=== PATIENT | female | born 1950 | race Caucasian/White ===

== ENCOUNTER 2023-09-10 18:25 | Inpatient (IN) | payer MEDICARE ==
[~2023-09-10 18:25] MED LIST: Iopamidol-370 76% 500 ML MDV (1 ML CHARGE) ONE
[2023-09-10 19:21] LABS: #Monocytes 0.7 thou/uL (0.11-0.59); #Neutrophils 7.1 thou/uL (1.40-6.50); %Basophils 0.3 % (0.0-1.0); %Eosinophils 0.3 % (0.0-10.0); %Lymphocytes 24.1 % (21.0-51.0); %Monocytes 6.8 % (0.0-10.0); %Neutrophils 68.1 % (42.0-75.0); Hematocrit 20.6 % (36.0-47.0); Hemoglobin 6.2 g/dL (12.0-16.0); Mean Corpuscular HGB CONC 30.1 g/dL (32.0-36.0); Mean Corpuscular Hemoglobin 20.5 pg (27.0-31.0); Mean Platelet Volume 11.7 fL (7.4-10.4); Platelet Count 182 10x3/uL (130-400); RBC Distribution Width 17.8 % (11.5-14.5); Red Blood Cell (RBC) Count 3.03 mill/uL (4.20-5.40); White Blood Cell (WBC) Count 10.3 10x3/uL (4.8-10.8)
[2023-09-10] MEDS ORDERED: Acetaminophen 500 MG TAB ONE (19:25)
[2023-09-10] MEDS ORDERED: Morphine 4 MG/ML VIAL ONE ×2 (19:26→21:21)
[2023-09-10 19:53] LABS: Troponin I 0.012 ng/mL (< 0.028)
[2023-09-10 19:57] LABS: ALT (SGPT) Less than 7 U/L (8-55); AST (SGOT) 17 U/L (5-34); Albumin 3.4 g/dL (3.4-4.8); Alkaline Phosphatase 79 U/L (40-110); Anion Gap 14 mmol/L (10-20); BUN (Urea Nitrogen) 26 mg/dL (9.8-20.1); Bilirubin, Total 0.5 mg/dL (0.2-1.2); Calc. Creatinine Clearance 0 mL/min (70-130); Calcium 8.6 mg/dL (7.8-10.44); Carbon Dioxide 25 mmol/L (23-31); Chloride 105 mmol/L (98-107); Estimated GFR 75; Globulin 2.5 g/dL (2.4-3.5); Glucose 115 mg/dL (83-110); Lipase 7 U/L (8-78); Potassium 3.4 mmol/L (3.5-5.1); Protein, Total 5.9 g/dL (5.8-8.1); Sodium 141 mmol/L (136-145)
[2023-09-10 19:59] LABS: Anisocytosis SLIGHT = 6-15 cells HPF (0-5); CellaVision Operator ID lab.sh2; Hypochromia SLIGHT = 6-15 cells HPF (0-5); Microcytosis SLIGHT = 6-15 cells HPF (0-5); Ovalocytes SLIGHT = 2-5 cells HPF (0-1); Platelet Adequacy Comment Platelets Normal; Polychromasia SLIGHT = 2-3 cells HPF (0-2); Target Cells SLIGHT = 2-5 cells HPF (0-1)
[2023-09-10] MEDS ORDERED: Ipratropium/Albuterol 3 ML NEB ONE (23:11)
[2023-09-11] MEDS ORDERED: Ondansetron PF 4 MG/2 ML Vial IVP PRN (00:06)
[2023-09-11] MEDS ORDERED: Acetaminophen 325 MG TAB PO PRN (00:06)
[2023-09-11] MEDS ORDERED: Ipratropium/Albuterol 3 ML NEB EZPAP PRN (00:12)
[2023-09-11] MEDS ORDERED: Potassium Chloride 20 MEQ TAB PO SCH (00:15)
[2023-09-11] MEDS ORDERED: traMADol HCl 50 MG TAB PO PRN (00:24)
[2023-09-11 00:49] LABS: Iron 12 ug/dL (50-170); Iron Binding Capacity, Total 360 mcg/dL (265-497); Iron Binding Capacity, Total 361 mcg/dL (265-497); Magnesium 1.9 mg/dL (1.6-2.6)
[2023-09-11 01:05] LABS: Hematocrit 24.3 % (36.0-47.0); Hemoglobin 7.5 g/dL (12.0-16.0)
[2023-09-11 02:06] VITALS: BMI 27.0
[2023-09-11] MEDS: Ipratropium/Albuterol 3 ML NEB NEB SCH ×6 (02:06→22:13)
[2023-09-11 02:09] LABS: Troponin I Less than 0.010 ng/mL (< 0.028)
[2023-09-11] MEDS: methylPREDNISolone Sod Succ 40 MG VIAL IVP SCH ×2 (02:34→12:33)
[2023-09-11] MEDS ORDERED: Furosemide 20 MG/2 ML VIAL SLOW IVP SCH (04:15)
[2023-09-11 05:50] LABS: #Monocytes 0.2 thou/uL (0.11-0.59); #Neutrophils 7.7 thou/uL (1.40-6.50); %Basophils 0.4 % (0.0-1.0); %Eosinophils 0.2 % (0.0-10.0); %Lymphocytes 20.4 % (21.0-51.0); %Monocytes 2.4 % (0.0-10.0); %Neutrophils 76.2 % (42.0-75.0); Hematocrit 27.6 % (36.0-47.0); Hemoglobin 8.3 g/dL (12.0-16.0); Mean Corpuscular HGB CONC 30.1 g/dL (32.0-36.0); Mean Corpuscular Hemoglobin 21.6 pg (27.0-31.0); Mean Platelet Volume 11.6 fL (7.4-10.4); Platelet Count 200 10x3/uL (130-400); RBC Distribution Width 19.2 % (11.5-14.5); Red Blood Cell (RBC) Count 3.85 mill/uL (4.20-5.40); White Blood Cell (WBC) Count 10.1 10x3/uL (4.8-10.8)
[2023-09-11 05:59] LABS: Mean Corpuscular Volume 71.7 fl (78.0-98.0)
[2023-09-11 06:18] LABS: Anion Gap 14 mmol/L (10-20); BUN (Urea Nitrogen) 29 mg/dL (9.8-20.1); Calc. Creatinine Clearance 58 mL/min (70-130); Calcium 8.7 mg/dL (7.8-10.44); Carbon Dioxide 23 mmol/L (23-31); Chloride 108 mmol/L (98-107); Estimated GFR 67; Glucose 106 mg/dL (83-110); Magnesium 1.9 mg/dL (1.6-2.6); Sodium 141 mmol/L (136-145)
[2023-09-11 06:19] LABS: Troponin I Less than 0.010 ng/mL (< 0.028)
[2023-09-11] MEDS: Ferrous Sulfate 325 MG TAB PO SCH ×2 (07:49→16:39)
[2023-09-11] MEDS ORDERED: Albuterol 200 PUFF (6.7GM INHALER) INH PRN ×2 (10:16→10:26)
[2023-09-11] MEDS ORDERED: Acetaminophen/Codeine 30-300mg Tablet PO PRN (10:16)
[2023-09-11] MEDS ORDERED: Non-Formulary Item 1 EACH (Tizanidine Hcl [Tizanidine Hcl] 4 MG Capsule) PO PRN (10:16)
[2023-09-11] MEDS ORDERED: Mometasone 200 MCG/Formoterol 5 MCG 120 PUFF INHALER INH PRN (10:29)
[2023-09-11] MEDS ORDERED: tiZANidine HCl 4 MG TAB PO PRN (10:29)
[2023-09-11] MEDS: Chlorthalidone 25 MG TAB PO SCH (10:40)
[2023-09-11] MEDS: hydrALAZINE 25 MG TAB PO SCH ×3 (10:40→20:06)
[2023-09-11] MEDS ORDERED: Lisinopril 20 MG TAB PO SCH (10:45)
[2023-09-11] MEDS: Acetaminophen/Codeine 30-300mg Tablet PO PRN ×2 (10:58→16:39)
[2023-09-11] MEDS: Lisinopril 20 MG TAB PO SCH (10:58)
[2023-09-11] MEDS: Azithromycin 500 MG in Sodium Chloride 0.9% 250 ML 250 ML IVPB SCH (20:07)
[2023-09-11] MEDS ORDERED: Non-Formulary Item 1 EACH (Benazepril Hcl [Benazepril Hcl] 40 MG Tablet) PO SCH (21:00)
[2023-09-12] MEDS: methylPREDNISolone Sod Succ 40 MG VIAL IVP SCH ×2 (00:48→12:41)
[2023-09-12] MEDS: Ipratropium/Albuterol 3 ML NEB NEB SCH ×6 (02:11→21:58)
[2023-09-12 05:53] LABS: #Monocytes 0.9 thou/uL (0.11-0.59); #Neutrophils 8.1 thou/uL (1.40-6.50); %Basophils 0.1 % (0.0-1.0); %Lymphocytes 21.5 % (21.0-51.0); %Monocytes 7.6 % (0.0-10.0); %Neutrophils 70.4 % (42.0-75.0); Hematocrit 24.2 % (36.0-47.0); Hemoglobin 7.3 g/dL (12.0-16.0); Mean Corpuscular HGB CONC 30.2 g/dL (32.0-36.0); Mean Corpuscular Hemoglobin 21.5 pg (27.0-31.0); Mean Corpuscular Volume 71.2 fl (78.0-98.0); Mean Platelet Volume 11.7 fL (7.4-10.4); Platelet Count 203 10x3/uL (130-400); RBC Distribution Width 19.7 % (11.5-14.5); White Blood Cell (WBC) Count 11.5 10x3/uL (4.8-10.8)
[2023-09-12 05:57] LABS: Anion Gap 14 mmol/L (10-20); BUN (Urea Nitrogen) 35 mg/dL (9.8-20.1); Calc. Creatinine Clearance 49 mL/min (70-130); Calcium 8.7 mg/dL (7.8-10.44); Carbon Dioxide 26 mmol/L (23-31); Chloride 107 mmol/L (98-107); Estimated GFR 56; Glucose 120 mg/dL (83-110); Potassium 3.8 mmol/L (3.5-5.1); Sodium 143 mmol/L (136-145)
[2023-09-12] MEDS ORDERED: Prasugrel 10 MG TAB PO SCH (09:00)
[2023-09-12] MEDS ORDERED: Albuterol 200 PUFF (6.7GM INHALER) INH PRN (09:49)
[2023-09-12] MEDS ORDERED: Ipratropium/Albuterol 3 ML NEB EZPAP PRN (09:50)
[2023-09-12] MEDS: Ferrous Sulfate 325 MG TAB PO SCH ×2 (09:55→17:10)
[2023-09-12] MEDS: Chlorthalidone 25 MG TAB PO SCH (09:55)
[2023-09-12] MEDS: Lisinopril 20 MG TAB PO SCH ×2 (09:55→20:59)
[2023-09-12] MEDS: hydrALAZINE 25 MG TAB PO SCH ×3 (09:55→21:00)
[2023-09-12] MEDS: Aspirin Chewable 81 MG TAB PO SCH (09:55)
[2023-09-12] MEDS ORDERED: Amlodipine 5 MG TAB PO SCH (17:15)
[2023-09-12] MEDS: Mometasone 200 MCG/Formoterol 5 MCG 120 PUFF INHALER INH SCH (19:15)
[2023-09-12] MEDS: Azithromycin 500 MG in Sodium Chloride 0.9% 250 ML 250 ML IVPB SCH (21:00)
[2023-09-13] MEDS: methylPREDNISolone Sod Succ 40 MG VIAL IVP SCH ×2 (00:29→12:07)
[2023-09-13] MEDS: Acetaminophen/Codeine 30-300mg Tablet PO PRN ×4 (00:33→20:28)
[2023-09-13] MEDS: Ipratropium/Albuterol 3 ML NEB NEB SCH ×4 (02:10→14:16)
[2023-09-13 06:21] LABS: #Monocytes 0.2 thou/uL (0.11-0.59); #Neutrophils 8.5 thou/uL (1.40-6.50); %Lymphocytes 19.6 % (21.0-51.0); %Monocytes 1.7 % (0.0-10.0); %Neutrophils 78.1 % (42.0-75.0); Hematocrit 25.4 % (36.0-47.0); Hemoglobin 7.6 g/dL (12.0-16.0); Mean Corpuscular HGB CONC 29.9 g/dL (32.0-36.0); Mean Corpuscular Hemoglobin 21.7 pg (27.0-31.0); Mean Corpuscular Volume 72.6 fl (78.0-98.0); Mean Platelet Volume 11.7 fL (7.4-10.4); Platelet Count 216 10x3/uL (130-400); RBC Distribution Width 20.6 % (11.5-14.5); White Blood Cell (WBC) Count 10.9 10x3/uL (4.8-10.8)
[2023-09-13 06:42] LABS: Anion Gap 15 mmol/L (10-20); BUN (Urea Nitrogen) 37 mg/dL (9.8-20.1); Calc. Creatinine Clearance 51 mL/min (70-130); Carbon Dioxide 26 mmol/L (23-31); Chloride 107 mmol/L (98-107); Estimated GFR 58; Glucose 125 mg/dL (83-110); Potassium 3.9 mmol/L (3.5-5.1); Sodium 144 mmol/L (136-145)
[2023-09-13] MEDS: Mometasone 200 MCG/Formoterol 5 MCG 120 PUFF INHALER INH SCH ×2 (07:59→18:43)
[2023-09-13 08:24] LABS: CellaVision Operator ID LAB.GE; Hypochromia MODERATE=16-30 cells HPF (0-5); Microcytosis SLIGHT = 6-15 cells HPF (0-5); Platelet Adequacy Comment Platelets Normal; Polychromasia MODERATE = 3-4 cells HPF (0-2)
[2023-09-13] MEDS: Lisinopril 20 MG TAB PO SCH ×2 (08:52→19:53)
[2023-09-13] MEDS: hydrALAZINE 25 MG TAB PO SCH ×3 (08:53→19:53)
[2023-09-13] MEDS: Ferrous Sulfate 325 MG TAB PO SCH ×2 (08:53→16:10)
[2023-09-13] MEDS: Chlorthalidone 25 MG TAB PO SCH (08:54)
[2023-09-13] MEDS: Aspirin Chewable 81 MG TAB PO SCH (08:54)
[2023-09-13] MEDS: Amlodipine 5 MG TAB PO SCH (08:57)
[2023-09-13] MEDS ORDERED: Amlodipine 5 MG TAB PO SCH (09:00)
[2023-09-13] MEDS: Azithromycin 500 MG in Sodium Chloride 0.9% 250 ML 250 ML IVPB SCH (19:53)
[2023-09-14] MEDS: methylPREDNISolone Sod Succ 40 MG VIAL IVP SCH ×2 (00:23→11:43)
[2023-09-14] MEDS: Acetaminophen/Codeine 30-300mg Tablet PO PRN ×2 (00:23→15:23)
[2023-09-14 06:12] LABS: Hematocrit 28.4 % (36.0-47.0); Hemoglobin 8.3 g/dL (12.0-16.0); Platelet Count 269 10x3/uL (130-400)
[2023-09-14] MEDS: Mometasone 200 MCG/Formoterol 5 MCG 120 PUFF INHALER INH SCH (08:08)
[2023-09-14] MEDS: Chlorthalidone 25 MG TAB PO SCH (08:27)
[2023-09-14] MEDS: Aspirin Chewable 81 MG TAB PO SCH (08:27)
[2023-09-14] MEDS: Lisinopril 20 MG TAB PO SCH (08:27)
[2023-09-14] MEDS: Ferrous Sulfate 325 MG TAB PO SCH (08:27)
[2023-09-14] MEDS: Amlodipine 5 MG TAB PO SCH (08:27)
[2023-09-14] MEDS: hydrALAZINE 25 MG TAB PO SCH ×2 (08:28→15:19)
[2023-09-14 16:53] VITALS: BP 166/89; TEMP 98.1
== END 2023-09-14 18:00 | disposition home or self-care (01) | DRG 189 ==
LOC: ERS 18:25 → 2SW 09-11 00:08 → OBSVTOIN 09-11 18:47
PROVIDERS: ADMIT Internal Medicine; ATTEND Family Medicine
PROC: 30233N1 Transfusion of Nonautologous Red Blood Cells into Peripheral Vein, Percutaneous Approach (ICD-10-PCS; principal; 2023-09-10)
DX: J96.01 Acute respiratory failure with hypoxia (principal); J44.1 Chronic obstructive pulmonary disease with (acute) exacerbation; I25.10 Atherosclerotic heart disease of native coronary artery without angina pectoris; I10 Essential (primary) hypertension; G89.29 Other chronic pain; M54.9 Dorsalgia, unspecified; Z88.2 Allergy status to sulfonamides; Z79.82 Long term (current) use of aspirin; Z79.899 Other long term (current) drug therapy; Z98.890 Other specified postprocedural states; F17.210 Nicotine dependence, cigarettes, uncomplicated; D50.9 Iron deficiency anemia, unspecified; J43.9 Emphysema, unspecified
CPT/HCPCS: 36415; 36430; 71045; 71275; 74176; 80048; 80053; 82728; 83540; 83550; 83690; 83735; 83880; 84484; 85014; 85018; 85025; 85046; 85049; 85379; 86850; 86900; 86901; 93005; 93010; 94640; 96374; 96375; 96376; G0378; J0456; J1940; J2270; J2920; J7050; J7620; P9016; Q9967